=== PATIENT | female | born 1985 | race Caucasian/White ===

== ENCOUNTER 2018-04-24 21:30 | Emergency (ER) | payer SELFPAY ==
[~2018-04-24] VITALS: Ht 157.5 cm; Wt 71.2 kg
[2018-04-24 21:42] VITALS: BP 150/91
[2018-04-24] MEDS ORDERED: FAMOTIDINE (20 MG) 20 MG TABLET ONE (23:10)
[2018-04-24] MEDS ORDERED: FAMOTIDINE (20 MG) 20 MG TABLET PO ONE (23:30)
[2018-04-25] MEDS ORDERED: LORAZEPAM 1 MG TABLET PO ONE
== END 2018-04-25 00:22 | disposition home or self-care (01) ==
LOC: ER 21:33
DX: R12 Heartburn (principal); F41.9 Anxiety disorder, unspecified; B34.9 Viral infection, unspecified; K21.9 Gastro-esophageal reflux disease without esophagitis
CPT/HCPCS: 99282; A4606; Z7610

== ENCOUNTER 2020-11-01 13:40 | Emergency (ER) | payer OTHER ==
[~2020-11-01] VITALS: Ht 157.5 cm; Wt 77.1 kg
--- NOTE | 2020-11-01 14:47 | NUR ---
PT AMBULATORY TO ER BED 02, PT STATES BEEN HAVING HEADACHE, DIZZINESS WHEN WALKING. PT STATES HER SYMPTOMS STARTED LAST FRIDAY. NO NEURO DEFICIT NOTED. STABLE VITALS. AWAITING MD ALONSO.
--- NOTE | 2020-11-01 14:54 | NUR ---
DR GUO AT BEDSIDE FOR EVAL.
[2020-11-01 15:25] LABS: BILIRUBIN,URINE NEGATIVE (NEGATIVE); COLOR,URINE YELLOW (YELLOW); LEUKOCYTE ESTERASE ,URINE SMALL (NEGATIVE); NITRITE, URINE NEGATIVE (NEGATIVE); PROTEIN,URINE NEGATIVE (NEGATIVE); UGLUCOSE NEGATIVE (NEGATIVE); UROBILINOGEN,URINE 0.2 EU/dL (0.2)
[2020-11-01 15:36] LABS: BACTERIA,URINE 1+ /HPF (None Seen); RBC,URINE 0-2 /HPF (0-2)
[2020-11-01] MEDS ORDERED: KETOROLAC TROMETHAMINE INJ 60 MG/2 ML VIAL IM ONE (16:00)
[2020-11-01] MEDS ORDERED: SULF1TAB48 PO (16:08)
[2020-11-01] MEDS ORDERED: IBUP-1955 PO (16:08)
[2020-11-01] MEDS ORDERED: KETOROLAC TROMETHAMINE INJ 30 MG/ML VIAL ONE (16:18)
--- NOTE | 2020-11-01 16:29 | NUR ---
Patient discharged to home in stable condition. Written and verbal after care instructions given. Patient verbalizes understanding of instruction.
[2020-11-01 16:51] VITALS: BP 136/87
== END 2020-11-01 16:29 | disposition home or self-care (01) ==
LOC: ER 13:42
DX: G44.209 Tension-type headache, unspecified, not intractable (principal); N39.0 Urinary tract infection, site not specified; K21.9 Gastro-esophageal reflux disease without esophagitis; Z79.899 Other long term (current) drug therapy
CPT/HCPCS: 81001; 84703; 87086; 93005; 96372; 99284; J1885